=== PATIENT | female | born 1965 | race Two or more races ===

== ENCOUNTER 2022-05-18 10:33 | Emergency (ER) | payer OTHER ==
[~2022-05-18] VITALS: Ht 149.9 cm; Wt 63.5 kg
[2022-05-18] MEDS ORDERED: METOPROLOL TART50 MG PO (11:19)
== END 2022-05-18 16:28 | disposition home or self-care (01) ==
LOC: ER 10:33
DX: N83.209 Unspecified ovarian cyst, unspecified side (principal); D21.9 Benign neoplasm of connective and other soft tissue, unspecified